=== PATIENT | male | born 1965 | race Asian ===

== ENCOUNTER 2020-04-20 07:40 | Emergency (ER) | payer OTHER, SELFPAY ==
[2020-04-20 08:07] VITALS: BP 173/98; PULSE 89; RESP 16; TEMP 37; O2SAT 98; BMI 29.7
--- NOTE | 2020-04-20 08:38 | CT_ITS ---
CT SOFT TISSUE NECK WITH IV CONTRAST CLINICAL INFORMATION: Dental abscess with trismus. COMPARISON: None available. TECHNIQUE: Following the intravenous administration of 60 mL of Omnipaque 350 intravenous contrast, helical imaging was performed in the axial plane with generation of coronal and sagittal reformatted images. This CT examination was performed using dose optimization techniques as appropriate, variously including the following: *Automated exposure control *Adjustment of mA and/or kV according to patient size (this includes techniques or standardized protocols for targeted exams where dose is matched to indication/reason for exam; i.e. extremities or head) *Use of iterative reconstruction technique FINDINGS: There is periapical lucency surrounding the roots of the left first maxillary premolar with adjacent buccal cortical erosion, concerning for a periapical abscess that can be correlated with physical exam. There is phlegmon within the left ally-maxillary soft tissues and there is cellulitis within the adjacent left facial soft tissues, the left interior design consultant space, the left buccal space, and the left retroantral fat pad. There is no large drainable abscess is identified. There is a possible small left ally-maxillary abscess adjacent to the periapical abscess on image 38 of series 2. There are no retropharyngeal fluid collections. The thyroid gland, seminal annular glands, and parotid glands are unremarkable. Orbital soft tissues are unremarkable. Laryngeal structures are symmetric and normal. Left pectoral pacemaker. Partially imaged heart is enlarged. Subcentimeter lymph nodes throughout the suprahyoid and infrahyoid neck as well as the partially imaged upper mediastinum. Imaged lungs are clear. The partially imaged intracranial compartment is unremarkable. Mild cervical spondylosis. Hypertrophic degenerative changes of the atlantodental interval. There is moderate mucosal thickening within the left maxillary sinus and the remaining paranasal sinuses are well-aerated. Rightward deviation of the bony nasal septum with a rightward directed septal spur. Mastoid air cells and middle ear cavities are clear. CT/CT soft tissue neck w con IMPRESSION: - There is periapical lucency surrounding the roots of the left first maxillary premolar with adjacent buccal cortical erosion, concerning for a periapical abscess that can be correlated with physical exam. - There is a possible small left ally-maxillary abscess adjacent to the periapical abscess on image 38 of series 2. There is phlegmon within the left ally-maxillary soft tissues and there is cellulitis within the adjacent left facial soft tissues, the left interior design consultant space, the left buccal space, and the left retroantral fat pad.
--- NOTE | 2020-04-20 09:07 | ED_ITS ---
HPI - Dental/Oral General Chief complaint: Dental/Oral Stated complaint: facial swelling, dental pain Time Seen by Provider: 04/20/20 08:15 Source: patient Mode of arrival: ambulatory Limitations: no limitations History of Present Illness HPI Narrative: 55 y/o male with history of NC in 2019 s/p AICD placement who p resents with acute onset of left sided dental pain that started yesterday. He woke up this morning with painful upper jaw and left sided facial swelling. He has difficulty opening his mouth completely and eating. He denies difficulty swallowing or breathing. No fevers at home. He has been taking ibuprofen with no improvement in the pain. Has not seen a dentist in several years. Related Data Previous Rx's Medication Instructions Recorded clindamycin HCl 600 mg PO TID 10 Days #60 cap 04/20/20 ibuprofen 600 mg PO Q8H PRN #20 tab 04/20/20 oxycodone 5 mg PO Q6H PRN #8 tab 04/20/20 Allergies Allergy/AdvReac Type Severity Reaction Status Date / Time No Known Allergies Allergy Unverified 01/03/20 14:54 [No Known Allergies*] Review of Systems Review of Systems: Constitutional: No Fever, No Chills ENT/Mouth: No sore throat, No Rhinorrhea, No Swallowing Difficulty, + dental pain, +trismus Cardiovascular: No Chest Pain, No SOB Respiratory: No Cough, No Sputum Gastrointestinal: No Nausea, No Vomiting, No Diarrhea, No abdominal Pain Musculoskeletal: No joint pain, No Myalgias Neuro: + Headache Heme/Lymph: No Bruising, +Lymphadenopathy PMFSH Past Medical History Attestation statement: The following information was validated with the patient. Medical History Cardiac arrest Cardiac defibrillator in place HTN (hypertension) Pacemaker Surgical History (Updated 04/20/20 @ 08:12 by Aura Eden) H/O hand surgery H/O heart artery stent Social History Social History Smoking Status: Current some day smoker Smoked in Last 30 Days: No Use of substances other than those prescribed or required for medical reasons: No Advance Directives: No Advance Directives Information Provided: No Physical Exam Vital Signs: Vital Signs: Last Vital Signs Temp 98.6 F 04/20/20 08:07 Pulse 103 H 04/20/20 11:37 Resp 16 01/03/21 11:37 BP 153/100 H 04/20/20 11:37 Pulse Ox 95 04/20/20 11:37 Body Mass Index 29.7 Appearance: Alert. Oriented X3. No acute distress. HEENT: moderate left sided facial swelling, normal voice, no difficulty handling secretions. 1st upper premolar on the left is cracked with correlating ginvigival edema, erythema and tenderness. no fluctunace. submandibilar LAD on the left. normal left EAC, TM. painful jaw opening. CVS: Normal heart rate and rhythm. Pulses normal. Respiratory: No respiratory distress. Skin: Skin warm and dry. Normal skin color. Normal skin turgor. No rashes. Extremities: atrumatic, no LE edema Neuro: Oriented X 3. No motor deficit. No sensory deficit. Course Course Course Narrative: 55 y/o male presenting with acute onset of left sided facial swelling and dental pain. Likely dental abscess. He is non-toxic appearing, speaking normally. Tolerating PO. No fever or tachycardia here to suggest sepsis. He has some trismus on exam, case d/w Dr. Brown. Will proceed with CT scan for further evaluation. No palpable dental abscess to drain on exam. Reevaluation(s) Reevaluation #1: CT scan showing periapical abscess of premolar with associated celluilitis and small left ally-maxillary abscess adjacent. WBC 12.2K. He was given dose of IV clindamycin here and toradol wtih improvement in the pain. Imaging reviewed with Dr. Brown. He is stable for d/c home with abx and pain control. He agrees to f/u with dental this week and will return if he develops worsening pain, swelling or difficulty swallowing or breathing. MDM - Dental/Oral Lab Data Result diagrams: 04/20/20 09:47 04/20/20 09:47 Labs: Lab Results 04/20/20 04/20/20 Range/Units 09:47 09:47 WBC 12.2 H (4.8-10.8) X10*3/uL RBC 4.72 (4.60-5.80) X10*6/uL Hgb 14.7 (14.0-18.0) g/dl Hct 43.7 (42-52) % MCV 92.6 (80-98) fL MCH 31.1 (27.0-33.0) pg MCHC 33.6 (31.0-36.0) g/dl RDW 12.1 (11.0-16.0) % Plt Count 210 (160-400) X10*3/uL MPV 10.8 (9.4-12.4) fL Immature Gran % (Auto) 0.3 (0.0-0.4) % Neut % (Auto) 86.9 H (45-73) % Lymph % (Auto) 6.6 L (20-40) % [place] % (Auto) 3.6 (2-11) % Eos % (Auto) 1.9 (0-4) % Baso % (Auto) 0.7 (0-2) % Lymph # (Auto) 0.8 L (1.2-4.9) X10*3/uL [place] # (Auto) 0.4 (0.1-1.2) X10*3/uL Eos # (Auto) 0.2 (0.0-0.4) X10*3/uL Baso # (Auto) 0.1 (0.0-0.2) X10*3/uL Abs Immat Gran (auto) 0.04 H (0.00-0.03) X10*3/uL Absolute Neuts (auto) 10.6 H (2.0-8.3) X10*3/uL Absolute Nucleated RBC 0.000 (0.0-0.012) X10*3/uL Nucleated RBC % (auto) 0.0 (0.0-0.2) /100WBC Sodium 142 (135-145) mmol/L Potassium 4.3 (3.3-5.1) mmol/l Chloride 109 H (96-108) mmol/L Carbon Dioxide 26 (22-29) mmol/L Anion Gap 11 L (12-20) BUN 18 H (9-16) mg/dL Creatinine 0.93 (0.5-1.4) mg/dL Estim Creat Clear Calc 91.8 Estimated GFR > 60 Random Glucose 182 H (60-115) mg/dL Calcium 8.3 L (8.4-10.2) mg/dL Discharge Plan Discharge Clinical Impression: Dental abscess Patient Disposition: Home, Self-Care Instructions: Dental Abscess (ED) Additional Instructions: Your CT scan showed a dental abscess. You are being prescribed antibiotics and pain medications for this. There was no indication for emergent drainage while in the ER. You should follow up with [facility] - call them tomorrow morning for an appointment. A list has been provided to you. If you develop difficulty breathing or swallowing, increased swelling and pain or any other concerning symptom seek medical attention or come back to the ER for further evaluation. Prescriptions: New clindamycin HCl 300 mg capsule 600 mg PO TID 10 Days Qty: 60 RF: 0 ibuprofen 600 mg tablet 600 mg PO Q8H PRN (Reason: pain) Qty: 20 RF: 0 oxycodone 5 mg tablet 5 mg PO Q6H PRN (Reason: pain) Qty: 8 RF: 0 Interventions: ED Discharge Assessment Last Done: 04/20/20 11:48 Discharge Date/Time: 04/20/20 11:49
[2020-04-20 09:53] LABS: Basophils Absolute Auto 0.1 X10*3/uL (0.0-0.2); Basophils Percent Auto 0.7 % (0-2); Eosinophils Absolute Auto 0.2 X10*3/uL (0.0-0.4); Eosinophils Percent Auto 1.9 % (0-4); Hematocrit 43.7 % (42-52); Hemoglobin 14.7 g/dl (14.0-18.0); Imm Gran Abs Auto 0.04 X10*3/uL (0.00-0.03); Imm Gran Pct Auto 0.3 % (0.0-0.4); Lymphocytes Absolute Auto 0.8 X10*3/uL (1.2-4.9); Lymphocytes Percent Auto 6.6 % (20-40); Mean Corpuscular HGB Conc 33.6 g/dl (31.0-36.0); Mean Corpuscular Hemoglobin 31.1 pg (27.0-33.0); Mean Corpuscular Volume 92.6 fL (80-98); Mean Platelet Volume 10.8 fL (9.4-12.4); Monocytes Absolute Auto 0.4 X10*3/uL (0.1-1.2); Monocytes Percent Auto 3.6 % (2-11); Neutrophils Absolute Auto 10.6 X10*3/uL (2.0-8.3); Neutrophils Percent Auto 86.9 % (45-73); Platelet Count 210 X10*3/uL (160-400); Red Blood Count 4.72 X10*6/uL (4.60-5.80); Red Cell Distribution Width 12.1 % (11.0-16.0); White Blood Count 12.2 X10*3/uL (4.8-10.8)
[2020-04-20 09:54] LABS: MANUAL DIFF FLAG NO
[2020-04-20] MEDS: oxyCODONE HCl Immed Release 5 MG TABLET PO (10:05)
[2020-04-20] MEDS: Ketorolac Tromethamine 30 MG/ML VIAL IVPUSH (10:06)
[2020-04-20] MEDS: Clindamycin Phosphate/D5W 600 MG/50 ML PIGGYBACK 100 MG IV (10:14)
[2020-04-20 10:22] LABS: Anion Gap 11 (12-20); Blood Urea Nitrogen 18 mg/dL (9-16); Calcium 8.3 mg/dL (8.4-10.2); Carbon Dioxide 26 mmol/L (22-29); Chloride 109 mmol/L (96-108); Creatinine Clr Calc Pharmacy 91.8; Estimated Glomerular Filt Rate > 60; Glucose Random 182 mg/dL (60-115); Potassium 4.3 mmol/l (3.3-5.1); Sodium 142 mmol/L (135-145)
[2020-04-20] MEDS: iohexoL 350 MG/ML 100 ML INFUS..BTL IV (11:11)
[2020-04-20 11:37] VITALS: BP 153/100; PULSE 103; RESP 16; O2SAT 95
== END 2020-04-20 11:49 | disposition home or self-care (01) ==
PROVIDERS: Physician Assistant; Emergency Provider Emergency Medicine
DX: K04.7 Periapical abscess without sinus (principal); F17.200 Nicotine dependence, unspecified, uncomplicated; Z71.6 Tobacco abuse counseling; Z79.899 Other long term (current) drug therapy
CPT/HCPCS: 36415; 70491; 80048; 85025; 96365; 96375; 99284; J1885; Q9967

== ENCOUNTER 2023-11-01 19:32 | Emergency (ER) | payer OTHER, SELFPAY ==
--- NOTE | ~2023-11-01 | CT_ITS ---
EXAMINATION: CT ABDOMEN AND PELVIS WITH AND WITHOUT CONTRAST: CT GI BLEEDING STUDY CLINICAL INFORMATION: Bright red blood per rectum, on anticoagulant. COMPARISON: No pertinent prior studies are available for comparison. TECHNIQUE: Multidetector volumetric imaging was performed from the lung bases to the pubic symphysis before and after the administration of: Intravenous contrast: 100 mL Omnipaque 350 No contrast reaction reported MIP coronal, sagittal and coronal reformatted images were obtained on the technologist workstation. This CT examination was performed using dose optimization techniques as appropriate, variously including the following: *Automated exposure control *Adjustment of mA and/or kV according to patient size (this includes techniques or standardized protocols for targeted exams where dose is matched to indication/reason for exam; i.e. extremities or head) *Use of iterative reconstruction technique Total exam dose-length product 1307 mGy-cm FINDINGS: STOMACH: No abnormal wall thickening or mass. No intraluminal contrast accumulation to suggest hemorrhage. SMALL BOWEL: No abnormal wall thickening or dilation. No intraluminal contrast accumulation to suggest hemorrhage. COLON: Contrast accumulation in the ascending colon in keeping with active GI bleeding. Colonic diverticulosis. No significant pericolonic fat stranding or free fluid. Normal appendix. LUNG BASES: No consolidation or pleural effusion. Partially seen pacer/AICD leads and coronary artery calcifications. LIVER, GALLBLADDER, AND BILIARY TREE: The liver is normal in size, shape, and attenuation. Indeterminate noncystic appearing hypodensities in the right hepatic lobe image 20 series 19. A few simple appearing cysts. No biliary ductal dilatation is present. Large approximately 3 cm calcified gallbladder calculus. Minimal perivesical fatty haziness. PANCREAS: Normal; no mass or surrounding fluid. SPLEEN: Normal size. No focal lesion. ADRENAL GLANDS: Normal; no mass. KIDNEYS AND URETERS: The kidneys are normal in size, shape, and attenuation. No hydronephrosis, hydroureter, or calculi. ABDOMINAL WALL: Small left-sided fat-containing inguinal hernia. LYMPHOVASCULAR STRUCTURES: No lymphadenopathy. Moderate atherosclerotic disease. Fusiform aneurysm of the abdominal aorta measuring up to 4.4 cm in diameter. BLADDER: Underdistended limiting evaluation. Suggestion of mild diffuse wall thickening with minimal trabeculation. PELVIC VISCERA: Mild prostatomegaly. OSSEOUS STRUCTURES: No acute or suspicious osseous abnormality. Degenerative changes of the spine. CT/CT gi bleed abd pel wo/w IVcon IMPRESSION: 1. Findings are most consistent with active GI bleed in the ascending colon. 2. Colonic diverticulosis but without significant pericolonic fat stranding or free fluid to suspected acute diverticulitis. 3. Large calcified gallbladder calculus with mild pericholecystic fatty haziness. Correlate clinically for acute cholecystitis. 4. Suggestion of mild diffuse urinary bladder wall thickening with trabeculations that could be seen in the context of chronic outlet obstruction in view of mild prostatomegaly. Recommend clinical correlation and if indicated further evaluation with urinalysis. 5. Fusiform aneurysm of the abdominal aorta measuring up to 4.4 cm in diameter. Based on published guidelines in J Am Rivka Radiol 2013; 10(10):789-794 and J Vasc Surg. 2018; 67:2-77, the recommendation for an abdominal aortic aneurysm with diameter 4.0-4.4 cm is vascular consultation and subsequent follow-up every 12 months. 6. Indeterminate noncystic appearing hypodensities in the right hepatic lobe. Recommend further characterization with palpation abdominal MRI with and without IV contrast. This critical result was discussed with Dr. Landeros at 11/01/2023 11:08 PM and it was ascertained that the content and urgency of the report was understood at the time of direct communication.
[2023-11-01 19:59] VITALS: BP 138/89; PULSE 101; RESP 18; TEMP 36.8; O2SAT 98; BMI 26.9
--- NOTE | 2023-11-01 20:00 | ED_ITS ---
HPI - GI Bleed General Chief complaint: GI Bleed Stated complaint: blood clots, hx of heart condition Time Seen by Provider: 11/01/23 22:02 Source: patient Mode of arrival: ambulatory Limitations: no limitations History of Present Illness ED Provider: AMARA TIDWELL Narrative: 58 yo male with PMH of vtach arrest 2019 s/p AICD on xarelto for what he describes at possible apical thrombus, HLD, GIB in past he reports here but I see no records and he states they did not do colonoscopy due to anesthesia risk though he has had negative cologuard. Tuesday in the middle of the night he started with painless rectal bleeding this afternoon it got worse and he has had several bouts with clots. He denies pain, dizziness, n/v or dyspnea. He does not take NSAIDs or any other meds on top of his xarelto. complaint: gross hematochezia Onset (ago): day(s) (Tuesday) Severity: moderate Exacerbating factors: bowel movement Context: history of GI bleed Associated symptoms: denies other symptoms Treatments Prior to Arrival: none Related Data Previous Rx's ?Medication ?Instructions ?Recorded clindamycin HCl 300 mg capsule 600 mg (2 x 300 mg) PO TID 10 days 04/20/20 #60 caps ibuprofen 600 mg tablet 600 mg PO Q8H PRN pain #20 tabs 04/20/20 oxycodone 5 mg tablet 5 mg PO Q6H PRN pain #8 tabs 04/20/20 Allergies Allergy/AdvReac Type Severity Reaction Status Date / Time No Known Allergies Allergy Verified 11/01/23 20:00 [No Known Allergies*] Review of Systems 2 Review of Systems: Constitutional : No Weight loss, No Fever, No Chills ENT/Mouth : No sore throat, No Rhinorrhea Eyes: No Swelling, No Redness Cardiovascular : No Chest Pain, No SOB, NoEdema Respiratory : No Cough, No Sputum, No Wheezing Gastrointestinal : no Nausea, no Vomiting, no Diarrhea, no abdominal Pain, pos Hematochezia, No Melena Genitourinary : No Dysuria, No Urinary Frequency, No Hematuria, No Urgency Musculoskeletal : No joint pain, No Myalgias, No Joint Swelling Skin : No Skin Lesions, No rash Neuro : No Weakness, No Numbness, No Dizziness, No Headache Psych : No Anxiety/Panic, No Depression All other systems reviewed and are negative. [facility] Past Medical History Attestation statement: The following information was validated with the patient. Source: old records reviewed Medical History Cardiac arrest HTN (hypertension) Cardiac defibrillator in place Pacemaker Surgical History H/O hand surgery H/O heart artery stent Social History Social History Smoked in Last 30 Days: Yes Use of substances other than those prescribed or required for medical reasons: No Advance Directives: No Advance Directives Information Provided: Yes Do you have a plan to hurt others: No Plan Physical Exam 2 Vital Signs: Vital Signs: Last Vital Signs Temp 98.6 F 11/01/23 21:40 Pulse 98 11/01/23 21:40 Resp 14 11/01/23 21:40 BP 120/84 11/01/23 21:40 Pulse Ox 97 11/01/23 21:40 O2 Del Method Room Air 11/01/23 21:40 BMI result Body Mass Index 26.9 Appearance: Alert. Oriented X3. No acute distress. Eyes: Pupils equal, round and reactive to light. ENT: Pharynx normal. Neck: Normal inspection. Neck supple. CVS: Normal heart rate and rhythm. Pulses normal. Respiratory: No respiratory distress. Breath sounds normal. Abdomen: Soft and nontender. Skin: Skin warm and dry. pale skin color. Normal skin turgor. Extremities: No lower extremity edema. No calf ttp Neuro: Oriented X 3. No motor deficit. No sensory deficit. Course Course Course Narrative: This is a Rapid Medical Examination (RME) performed by Karen Keating PA-C in triage. Full HPI, ROS, assessment and treatment plan per primary provider in the Main ED. 58 yo male with history of VT s/p ICD, on Xarelto who presents to the ER for evaluation of painless rectal bleeding for the last 2.5 days. Having 5-6 episodes of bright red blood clots per day. Has never had a colonoscopy due to cardiac issues. Feels generalized weakness but no SOB or chest pain. Last BM 2 hours ago with bright red clots. Plan: labs and T&S- may require GI bleed scan if concern for actively bleeding. Reevaluation(s) Reevaluation #1: [facility] currently at capacity right now Will try [facility] they are also full at this time will contact [facility] at this time Reevaluation #2: accepted to [facility] ER Dr. Curtis 1140pm Medications Administered Discontinued Medications Generic Name Dose Route Start Last Admin Trade Name Frantz PRN Reason Stop Dose Admin Iohexol 80 ml 11/01/23 22:32 11/01/23 22:33 Iohexol 350 Mg/Ml 100 Ml Infus..Btl IV 11/01/23 22:33 80 ml ONCE ONE Administration Medical Decision Making Medical Decision Making MDM Narrative: 58 yo male with PMH of vtach arrest 2019 s/p AICD on xarelto for what he describes at possible apical thrombus, HLD, GIB in past here with c/o brb per rectum since Tuesday has no associated symptoms at this time will need 2 IV lines, type and screen, EKG and sent in for GIB protocol. He notes he had the ECHO showing possible thrombus a year ago but I cannot find it in our records. If necessary will reverse with PCC if he has severe bleeding here. If there is bleeding on CT scan will discuss with GI and may need IR Differential Diagnosis Differential Diagnoses: The differential diagnosis associated with the presentation includes GIB Admission/Observation Consideration of admission/observation: Escalation of care including admission/observation considered transfer to tertiary center with IR per Tommy Consult Healthcare Provider Management of the patient was discussed with: Manager Flight (Dr. Sanders from GI 1109pm) Lab Data [facility] Lab Attestation statement: I reviewed the patient's lab results. 11/01/23 20:16 11/01/23 20:16 Labs: Lab Results 11/01/23 11/01/23 11/01/23 Range/Units 20:16 21:46 21:49 WBC 11.1 H (4.8-10.8) X10*3/uL RBC 3.91 L (4.60-5.80) X10*6/uL Hgb 12.5 L (14.0-18.0) g/dl Hct 35.5 L (42.0-52.0) % MCV 90.8 (80.0-98.0) fL MCH 32.0 (27.0-33.0) pg MCHC 35.2 (31.0-36.0) g/dl RDW 12.6 (11.0-16.0) % Plt Count 173 (160-400) X10*3/uL MPV 10.5 (9.4-12.4) fL Immature Gran % (Auto) 0.3 (0.0-0.4) % Neut % (Auto) 78.1 H (45-73) % Lymph % (Auto) 13.0 L (20-40) % [place] % (Auto) 5.8 (2-11) % Eos % (Auto) 2.2 (0-4) % Baso % (Auto) 0.6 (0-2) % Lymph # (Auto) 1.5 (1.2-4.9) X10*3/uL [place] # (Auto) 0.7 (0.1-1.2) X10*3/uL Eos # (Auto) 0.2 (0.0-0.4) X10*3/uL Baso # (Auto) 0.1 (0.0-0.2) X10*3/uL Abs Immat Gran (auto) 0.03 (0.00-0.03) X10*3/uL Absolute Neuts (auto) 8.7 H (2.0-8.3) x10*3/uL Absolute Nucleated RBC 0.000 (0.0-0.012) X10*3/uL Nucleated RBC % (auto) 0.0 (0.0-0.2) /100WBC PT 15.4 H (11.1-13.3) SEC INR 1.3 H (0.9-1.1) APTT 35.6 (26.0-36.8) SEC Sodium 140 (135-145) mmol/L Potassium 4.0 (3.3-5.1) mmol/L Chloride 109 H (96-108) mmol/L Carbon Dioxide 22 (22-29) mmol/L Anion Gap 13 (12-20) BUN 17 H (9-16) mg/dL Creatinine 0.88 (0.5-1.4) mg/dL Estim Creat Clear Calc 83.4 Estimated GFR > 60 Random Glucose 128 H (60-115) mg/dL Calcium 8.7 (8.4-10.2) mg/dL Magnesium 1.8 (1.6-2.6) mg/dL Total Bilirubin 0.7 (0.0-1.0) mg/dL Direct Bilirubin 0.2 (0.0-0.5) mg/dL AST 13 (5-37) U/L ALT 11 (0-40) U/L Alkaline Phosphatase 77 (39-117) U/L Total Protein 6.5 (6.5-8.0) g/dL Albumin 3.9 (3.5-5.0) g/dL Urine Color Yellow Urine Appearance Clear Urine pH 5.5 (5.0-9.0) Ur Specific [place] 1.010 (1.005-1.025) Urine Protein Negative (Neg-Trace) mg/dL Urine Glucose (UA) Negative (Negative) mg/dL Urine Ketones Negative (Negative) mg/dL Urine Blood Negative (Negative) Urine Nitrite Negative (Negative) Ur Leukocyte Esterase Negative (Negative) Blood Type O Positive Antibody Screen NEGATIVE Independent Interpretation I performed an independent interpretation of an: EKG and CT Scan (active bleed) Interpretation: Rate: 100 Rhythm: NSR [place]: left Normal P waves. Normal HANNA[place]. Normal QRS complex. ST T wave : normal no DORI qTC: 454 prior studies: no acute ischemia, old inf infarct The study has been interpreted contemporaneously by me. . Radiology Impression Discussion of test interpretation with radiology: I discussed test interpretation with the radiologist and I have reviewed the radiologist's reading. Radiologist Impression: 1107pm call from Radiology + acute active GIB ascending colon CT/CT gi bleed abd pel wo/w IVcon IMPRESSION: 1. Findings are most consistent with active GI bleed in the ascending colon. 2. Colonic diverticulosis but without significant pericolonic fat stranding or free fluid to suspected acute diverticulitis. 3. Large calcified gallbladder calculus with mild pericholecystic fatty haziness. Correlate clinically for acute cholecystitis. 4. Suggestion of mild diffuse urinary bladder wall thickening with trabeculations that could be seen in the context of chronic outlet obstruction in view of mild prostatomegaly. Recommend clinical correlation and if indicated further evaluation with urinalysis. 5. Fusiform aneurysm of the abdominal aorta measuring up to 4.4 cm in diameter. Based on published guidelines in J Am Rivka Radiol 2013; 10(10):789-794 and J Vasc Surg. 2018; 67:2-77, the recommendation for an abdominal aortic aneurysm with diameter 4.0-4.4 cm is vascular consultation and subsequent follow-up every 12 months. 6. Indeterminate noncystic appearing hypodensities in the right hepatic lobe. Recommend further characterization with palpation abdominal MRI with and without IV contrast. External Record Review External record reviewed: Inpatient record Critical Care Time Critical Care Time Critical Care Time: Yes Total Critical Care Time: 45 Attestation: transfer to tertiary center, review of records, multiple calls I attest to this time spent taking care of the patient Discharge Plan Discharge Clinical Impression: Lower gastrointestinal hemorrhage Patient Disposition: [facility] Transfer Details: [facility] Prescriptions: No Action clindamycin HCl 300 mg capsule 600 mg PO TID 10 Days Qty: 60 0RF ibuprofen 600 mg tablet 600 mg PO Q8H PRN (Reason: pain) Qty: 20 0RF oxycodone 5 mg tablet 5 mg PO Q6H PRN (Reason: pain) Qty: 8 0RF Rx Instructions: for 3 days Print Language: Tajik
[2023-11-01 20:22] LABS: MANUAL DIFF FLAG NO
[2023-11-01 20:24] LABS: Basophils Absolute Auto 0.1 X10*3/uL (0.0-0.2); Basophils Percent Auto 0.6 % (0-2); Eosinophils Absolute Auto 0.2 X10*3/uL (0.0-0.4); Eosinophils Percent Auto 2.2 % (0-4); Hematocrit 35.5 % (42.0-52.0); Hemoglobin 12.5 g/dl (14.0-18.0); Imm Gran Abs Auto 0.03 X10*3/uL (0.00-0.03); Imm Gran Pct Auto 0.3 % (0.0-0.4); Lymphocytes Absolute Auto 1.5 X10*3/uL (1.2-4.9); Mean Corpuscular HGB Conc 35.2 g/dl (31.0-36.0); Mean Corpuscular Volume 90.8 fL (80.0-98.0); Mean Platelet Volume 10.5 fL (9.4-12.4); Monocytes Absolute Auto 0.7 X10*3/uL (0.1-1.2); Monocytes Percent Auto 5.8 % (2-11); Neutrophils Absolute Auto 8.7 x10*3/uL (2.0-8.3); Neutrophils Percent Auto 78.1 % (45-73); Platelet Count 173 X10*3/uL (160-400); Red Blood Count 3.91 X10*6/uL (4.60-5.80); Red Cell Distribution Width 12.6 % (11.0-16.0); White Blood Count 11.1 X10*3/uL (4.8-10.8)
[2023-11-01 20:33] LABS: INTERNATIONAL NORM RATIO 1.3 (0.9-1.1); Prothrombin Time 15.4 SEC (11.1-13.3)
[2023-11-01 20:36] LABS: Partial Thromboplastin Time 35.6 SEC (26.0-36.8)
[2023-11-01 20:39] LABS: Alanine Aminotransferase 11 U/L (0-40); Albumin Level 3.9 g/dL (3.5-5.0); Alkaline Phosphatase 77 U/L (39-117); Anion Gap 13 (12-20); Aspartate Amino Transferase 13 U/L (5-37); Bilirubin Direct 0.2 mg/dL (0.0-0.5); Bilirubin Total 0.7 mg/dL (0.0-1.0); Blood Urea Nitrogen 17 mg/dL (9-16); Calcium 8.7 mg/dL (8.4-10.2); Carbon Dioxide 22 mmol/L (22-29); Chloride 109 mmol/L (96-108); Creatinine Clr Calc Pharmacy 83.4; Estimated Glomerular Filt Rate > 60; Glucose Random 128 mg/dL (60-115); Magnesium 1.8 mg/dL (1.6-2.6); Sodium 140 mmol/L (135-145); Total Protein 6.5 g/dL (6.5-8.0)
[2023-11-01 21:40] VITALS: BP 120/84; PULSE 98; RESP 14; TEMP 37; O2SAT 97
[2023-11-01 21:59] LABS: Appearance Urine Clear; Color Urine Yellow; Glucose Urine UA Negative (Negative); Leukocyte Esterase Urine Negative (Negative); Nitrite Urine Negative (Negative); PH 5.5 (5.0-9.0); Urine Blood Negative (Negative); Urine Ketones Negative (Negative); Urine Protein Negative (Neg-Trace)
--- NOTE | 2023-11-01 22:16 | PC.NURSE ---
Pt is ca&ox4, no signs of distress. Pt denies pain, but reports bloody stool. Pt with CT. Plan of care ongoing.
[2023-11-01] MEDS: iohexoL 350 MG/ML 100 ML INFUS..BTL 80 ML IV (22:33)
--- NOTE | 2023-11-01 22:36 | ECG_ITS ---
Test Reason : gi bleed Blood Pressure : / mmHG Vent. Rate : 100 BPM Atrial Rate : 100 BPM P-R Int : 148 ms QRS Dur : 094 ms QT Int : 352 ms P-R-T Axes : 033 017 046 degrees QTc Int : 454 ms Normal sinus rhythm Inferior infarct , age undetermined Abnormal ECG When compared with ECG of 19-APR-2018 11:43, Sinus rhythm has replaced Junctional rhythm Vent. rate has increased BY 46 BPM Inferior infarct is now Present ST no longer elevated in Inferior leads ST no longer depressed in Anterior leads Nonspecific T wave abnormality no longer evident in Anterior leads Referred By: Lexi Landeros Electronically Signed By:MCYHAL LEYVA MD
[2023-11-01 23:48] VITALS: BP 115/74; PULSE 99; RESP 14; TEMP 36.9; O2SAT 98
--- NOTE | 2023-11-02 00:34 | PC.NURSE ---
This RN attempted to give nurse to nurse report to [place] ED x2, no answer [phone].
[2023-11-02 00:35] VITALS: BP 115/74; PULSE 99; RESP 14; TEMP 36.9; O2SAT 98
== END 2023-11-02 00:40 | disposition short-term general hospital (02) ==
PROVIDERS: Physician Assistant; Emergency Provider Emergency Medicine
DX: K92.2 Gastrointestinal hemorrhage, unspecified (principal); R10.2 Pelvic and perineal pain; R94.31 Abnormal electrocardiogram [ECG] [EKG]; Z79.899 Other long term (current) drug therapy
CPT/HCPCS: 36415; 74178; 80048; 80076; 81003; 83735; 85025; 85610; 85730; 86850; 86900; 86901; 93005; 99285; Q9967

== ENCOUNTER → 2023-11-01 22:36 | Outpatient (BNV) | payer OTHER, SELFPAY | PROVIDERS: Emergency Provider Emergency Medicine; Visit Provider Internal Medicine Cardiovascular Disease | DX: R94.31 Abnormal electrocardiogram [ECG] [EKG] (principal) | CPT/HCPCS: 93010 ==